=== PATIENT | female | born 1950 | race Caucasian/White ===

== ENCOUNTER 2017-03-28 09:59 | Emergency (ER) | payer MEDICARE, OTHER ==
[~2017-03-28] VITALS: Ht 162.6 cm; Wt 108.2 kg
[~2017-03-28 09:59] MED LIST: ASPI325T32 PO; CALC-761 PO; CLOP75TA3 PO; LEVO125T6 PO; LISI-567 PO; PANT20TA2 PO; ROSU5TAB PO
[2017-03-28] MEDS ORDERED: Ondansetron 2 mg/mL 2 mL Inj ONE (10:31)
--- NOTE | 2017-03-28 10:32 | ED.REPORT ---
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 She describes pain as "sharp" that radiates outwards from the outside of her right ankle, 9 out of 10 in severity, and is exacerbated by movement. Patient did not hit her head. She denies neck pain, back pain, loss of consciousness, lightheadedness, headache, chest pain, focal weakness, numbness/tingling, chills , fever or any other symptoms. Nursing Notes Stated Complaint: GLF Chief Complaint: Extremity Trauma Nursing Notes Reviewed: Yes Allergies: Coded Allergies: Penicillins (Verified Allergy, Unknown, 03/28/17) codeine (Verified Allergy, Unknown, 03/28/17) Scheduled Aspirin (Aspirin) 325 Mg Tablet.dr 325 MG PO DAILY Calcium Citrate/Vitamin D3 (Citracal + D Maximum Caplet) 1 Each Tablet 1 EACH PO BID Clopidogrel Bisulfate (Plavix) 75 Mg Tablet 75 MG PO DAILY Levothyroxine (Levothyroxine) 125 Mcg Tablet 125 MCG PO DAILY Lisinopril (Lisinopril) 20 Mg Tablet 20 MG PO BID Pantoprazole DR (Pantoprazole DR) 20 Mg Tablet.dr 20 MG PO DAILY Rosuvastatin Calcium (Crestor) 5 Mg Tablet 5 MG PO DAILY Scheduled PRN Hydrocodone-Acetaminophen 5-325 mg (Hydrocodone-Acetaminophen 5-325 mg) 1 Each Tablet 1 TABLET PO Q6H PRN PRN For Pain General Time Seen by MD: 10:32 Chief Complaint Other (Right ankle pain) Hx Obtained From: Patient, Spouse Arrived By: Ambulance, Walk-in Sudden in Onset?: Yes Onset Occurred: 1 - 4 hours ago Caused by: Fall on ground Location: : Ankle right Quality: Painful, Sharp Radiation: : Leg right Severity: Current: Pain level 9 out of 10 Severity: Maximum: Pain level 10 out of 10 Pertinent Negative: Pt denies other symptoms Relieved by: Prescription meds Recent Healthcare: No recent doctor visit, No recent hospitalization Similar Sx Previous: No Past Medical History Past Medical History Reports: Hypertension Past Surgical History Myxoma removal in 1998 Pacemaker insertion Reports: Cholecystectomy Smoking History Never Smoker Social History Alcohol Use: "Social" Drug Use: Denies drug use Other Social History: Good social support Ambulatory Status Independent Review of Systems Full Review of Systems Constitutional: Denies: Chills, Fever Eyes: Denies: Blurred bilateral Ears / Nose / Throat: Denies: Sore throat Respiratory: Denies: Shortness of breath Cardiovascular: Denies: Chest pain GI: Denies: Abdominal pain Female: Denies: Dysuria Musculoskeletal: Reports: Extremity pain (Right ankle), Joint pain, Denies: Back pain, Neck pain Skin: Denies Rash Allergy / Immune: Denies: Itching Neurologic: Denies: Change LOC, Focal weakness, Headache, Lightheaded, Numbness Psychiatric: Denies: Change mental status Complete sys rev & neg: except as marked. Physical Exam Nursing note and vitals reviewed. Constitutional: Well-developed, well-nourished. Not diaphoretic. Head: Normocephalic and atraumatic. Mouth/Throat: Oropharynx is clear and moist. No oropharyngeal exudate. Eyes: EOM are normal. Pupils are equal, round, and reactive to light. Neck: Supple, no tracheal deviation. Cardiovascular: Normal rate, regular rhythm. Equal and intact distal pulses throughout. Good cap refill to lower extremities. Pulmonary/Chest: Effort normal and breath sounds normal. No respiratory distress. Abdominal: Soft. No distension. There is no tenderness, rebound, or guarding. Bowel sounds present. Musculoskeletal: Obvious deformity of right ankle with foot dislocated posteriorly with respect to the distal tib-fib. Neurovascularly intact. No knee tenderness to palpation. No proximal fibular tenderness to palpation. No cervical, thoracic, or lumbar tenderness to palpation Neurological: AOx3. Grossly nonfocal exam. Strength and sensation intact and equal to bilateral upper and lower extremities. Skin: Warm and dry, no rashes or pallor appreciated. Psychiatric: Appropriate mood and affect. Behavior appears normal. Vital Signs Vital Signs Date Time Temp Pulse Resp B/P Pulse Ox O2 Delivery O2 Flow Rate FiO2 03/28/17 16:58 64 13 133/69 96 Room Air 03/28/17 13:53 60 14 130/55 95 Room Air 03/28/17 13:00 60 12 139/62 98 Nasal Cannula 4 03/28/17 10:49 36.6 60 24 156/77 97 Room Air Interpretation & Diagnostics Lab Results Interpretation Test 03/28/17 10:25 Hold Purple Top Tube Received (Received) Hold Blue Top Tube Received (Received) Hold Hampton Top Tube Received (Received) Hold Ruelas Top Tube Received (Received) X-Ray Interpretation Xray Interpretation: Ankle X-Ray: IMPRESSION: Posterior dislocation of the right tibiotalar joint, along with comminuted oblique fracture of the distal fibula at the level of the widened syndesmosis. Dictated by: Thad Herring M.D. on 03/28/2017 at 11:16 Approved by: Thad Herring M.D. on 03/28/2017 at 11:17 X-Ray Ordered: Ankle right Interpretation / Wet Read by: Interpret - Radiologist Xray Interpretation: Knee X-Ray: IMPRESSION: No acute bony injuries of the right knee. Dictated by: Thad Herring M.D. on 03/28/2017 at 11:15 Approved by: Thad Herring M.D. on 03/28/2017 at 11:15 X-Ray Ordered: Knee right Interpretation / Wet Read by: Interpret - Radiologist Xray Interpretation: Ankle X-Ray: IMPRESSION: Improved alignment of the lateral malleolus and medial malleolus fracture fragments, status post closed reduction. Improved alignment of the ankle mortise with findings that continue to be compatible with a distal tibiofibular syndesmotic injury. Dictated by: Jose Elias Mcgowan M.D. on 03/28/2017 at 12:43 Approved by: Jose Elias Mcgowna M.D. on 03/28/2017 at 12:45 X-Ray Ordered: Ankle right Interpretation / Wet Read by: Interpret - Radiologist CT Head Interpretation IMPRESSION: Negative head CT. No acute intracranial hemorrhage. Dictated by: Jose Elias Mcgowan M.D. on 03/28/2017 at 13:42 Approved by: Jose Elias Mcgowan M.D. on 03/28/2017 at 13:44 Study: Head CT no contrast Interpretation / Wet Read by: Interpret - Radiologist Procedures Proced Mod Sedation/Analgesia Time: 13:21 Procedure Performed by: ED physician Sedation Time: 16 - 30 min Consent / Setup: Informed consent provided, Consent from patient, Time-out performed, Hand hygiene observed, Position supine Indication: Fracture reduction Preparation: manager monitoring applied, Pulse oximeter applied, Constant attendance, IV access established, Eval last meal time, Supplemental oxygen, Procedure explained, Suction available, End tidal CO2 mon applied Mallampati: Class & Anatomy: 2 top tonsil/uvula/palate Airway Exam: Normal anatomy CVS/Resp Exam: Normal breath sounds, Normal heart sounds Neuro Exam: Alert, No acute distress Sedation: Sedation: Ketamine, Sedation: Propofol ASA Classification: 2 mild systemic disease Response During Procedure: Handled secretions adeq, Maintained airway well, Oxygenation stable, Sedation appropriate, Vital signs stable Complications During/After: None Reversal: None required Mental Status After Procedure: Alert, Oriented X3 Post-Procedure: Vital signs normal Attestation: I performed procedure, I performed sedation Reduction Dislocated Ankle Time: 13:24 Procedure Performed by: ED physician Consent / Setup: Informed consent provided, Consent from patient, Time-out performed, Oxygen administered, Pulse oximeter applied, manager monitoring applied , Hand hygiene observed, Stand sterile technique Procedural Sedation/Analgesia: Sedation: Ketamine, Sedation: Propofol Which Ankle and Technique: Right ankle Neurovascular: Intact pre-procedure, Intact post-procedure Post-Procedure / Complications: Reduced per examination, Procedure successful, X-ray disloc reduced, Posterior splint applied, Condition improved, Tolerated procedure well, Patient stable Splint Application - Fx Mgt Time: 13:28 Procedure Performed by: ED physician Precise Anatomic Location: R ankle Type of Immobilization: Ortho-glass Definitive Fracture Care: Pain control, Splint, Performed by me Post-Procedure / Complications: Cap refill normal, Post splint vascular nl, Post splint neuro nl, Condition improved, Tolerated procedure well, Patient stable Splint Post-Application Eval Extremity Condition: Cap refill < 2 sec, Distal sensation intact, Distal motor Intact, No compartment syndrome Re-Eval/Medical Decision Med Decision/Clinical Course In summary, 66-year-old female presenting to the ED after a clear mechanical fall. No chest pain, shortness of breath, lightheadedness, palpitations or other symptoms prior to the incident; patient merely slipped and fell. Head CT negative for acute intracranial abnormality. No neck pain. She did not hit her head. Compartment soft; no evidence of compartment syndrome. X-rays of the patient's knee and ankle were obtained, demonstrate a comminuted, oblique fracture of the distal fibula, a widened tibiofibular syndesmosis, and a posterior dislocation of the talar dome with respect to the ankle mortise. Reduction, sedation, and splinting performed as per above. This was tolerated well by the patient. I discussed the case with Dr. Rodriguez; he recommended nonweightbearing, follow-up with clinic in the next several days to discuss possible operative intervention. Patient was neurovascularly intact both pre- and post procedure. Plan discharge home with very careful return precautions, PCP follow-up tomorrow for reassessment, and very careful splint care instructions. Patient agreeable to the plan as stated, no further questions. Source of Hx: Old records Time of Eval: 13:21 Re-Evaluation/Progress Note: Pt rechecked. Performed ankle reduction. Time of Eval: 13:59 Patient Status: Condition improved Re-Evaluation/Progress Note: Pt rechecked. Discussed plan for discharge. Patient understands and agrees with plan. F/U instructions and RTER warnings given. All questions addressed at this time. 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 Rodriguez. He recommends discharge and f/u in clinic next week. Pt should keep weight off ankle until f/u. Counseled Regarding: Diagnosis, Lab results, Need for follow-up, When/why to return to ED Discharge & Departure Primary Impression: Ankle fracture Encounter type: initial encounter Fracture type: closed Laterality: right Qualified Code: S82.891A - Other fracture of right lower leg, initial encounter for closed fracture Disposition: Home Discharge Condition All VS Reviewed: Yes Condition: Stable Patient Instructions: Ankle Fracture (ED), Hydrocodone/Acetaminophen (By mouth) , Non Weight Bearing Activity (ED), Splint Care (ED) Additional Instructions: Thank you for entrusting us with your care. Your x-rays determine that you have an ankle fracture that was dislocated. We reduced this in the emergency department. Call ortho tomorrow to schedule a follow-up appointment for early next week. See the number provided. Read the attached instructions carefully. Do not bear weight on your ankle. Take hydrocodone for pain. Do not drive, drink alcohol, or take acetaminophen while taking hydrocodone. Return to the emergency department for numbness/tingling, increasing pain, or any other new or concerning symptoms. Referrals: Denzel Rodriguez MD Attestation Portions of this note were transcribed by Trista Hutton and Harvinder Chu. I, Dr. Perez, personally performed the history, physical exam and medical decision-making; I reviewed and confirmed the accuracy of the information in the transcribed note. Signed by: Zayda Cardoso, 03/28/17. . copies to: Denzel Rodriguez MD, William B MD Mar 28, 2017 10:32 Trista Hutton Mar 28, 2017 11:30 HARVINDER CHU Mar 28, 2017 12:46
[2017-03-28] MEDS ORDERED: HYDROmorphone 1 mg/mL Inj IVPUSH ONE ×2 (10:35→12:15)
[2017-03-28] MEDS ORDERED: Albuterol 0.5% (5mg/mL) 20 mL Inhalation Solution NEB ONE (10:35)
[2017-03-28] MEDS ORDERED: Ipratropium 0.02% 0.5 mg/2.5 mL Inhalation Solution NEB ONE (10:35)
[2017-03-28 10:49] VITALS: BP 156/77; PULSE 60; RESP 24; O2SAT 97
--- NOTE | 2017-03-28 11:17 | DRSVH ---
PROCEDURE: X-RAY RIGHT KNEE, ONE OR TWO VIEWS ([id number]) INDICATIONS: 66 year-old female with right knee pain after fall. TECHNIQUE: 2 views of the knee were acquired. COMPARISON: None. FINDINGS: Bones: No fractures or dislocations. No suspicious bony lesions. Soft tissues: No joint effusion. No suspicious soft tissue calcifications. IMPRESSION: No acute bony injuries of the right knee. Dictated by: Thad Herring M.D. on 03/28/2017 at 11:15 Approved by: Thad Herring M.D. on 03/28/2017 at 11:15
--- NOTE | 2017-03-28 11:19 | DRSVH ---
PROCEDURE: X-RAY RIGHT ANKLE, MINIMUM THREE VIEWS ([id number]) INDICATIONS: 66 year-old female with right ankle injury after fall. TECHNIQUE: 3 views of the ankle were acquired. COMPARISON: None. FINDINGS: Bones: There is comminuted oblique fracture involving the distal fibula at the level of the widened t ibiofibular syndesmosis. There is posterior dislocation of the talar dome with respect to the ankle m ortise. Distal tibia appears intact. Soft tissues: There is bimalleolar soft tissue swelling. IMPRESSION: Posterior dislocation of the right tibiotalar joint, along with comminuted oblique fractu re of the distal fibula at the level of the widened syndesmosis. Dictated by: Thad Herring M.D. on 03/28/2017 at 11:16 Approved by: Thad Herring M.D. on 03/28/2017 at 11:17
[2017-03-28] MEDS ORDERED: Propofol 10 mg/mL 20 mL Inj IVPUSH ONE (12:45)
[2017-03-28] MEDS ORDERED: Ketamine 100 mg/mL 5 mL Inj IV ONE (12:45)
[2017-03-28 13:00] VITALS: BP 139/62; PULSE 60; RESP 12; O2SAT 98
--- NOTE | 2017-03-28 13:47 | DRSVH ---
PROCEDURE: X-RAY RIGHT ANKLE, TWO VIEWS ([id number]) INDICATIONS: ANKLE REDUCTION TECHNIQUE: 2 views of the ankle were acquired. COMPARISON: [facility], CR, XR ANKLE 3VW RT, 03/28/2017, 10:41. FINDINGS: There has been interval improvement in the alignment of the distal fibula and medial malleolus fractu re fragments, status post closed reduction and splinting. These fractures are now in near-anatomic a lignment. The alignment of the ankle mortise is improved with residual widening of the medial clear space and residual widening of the distal tibiofibular syndesmosis. No new fractures are evident. N o suspicious osseous lesions are identified. Prominent soft tissue swelling about the ankle is prese nt with an associated ankle effusion. No radiopaque foreign bodies are evident. IMPRESSION: Improved alignment of the lateral malleolus and medial malleolus fracture fragments, stat us post closed reduction. Improved alignment of the ankle mortise with findings that continue to be compatible with a distal tibiofibular syndesmotic injury. Dictated by: Jose Elias Mcgowan M.D. on 03/28/2017 at 12:43 Approved by: Jose Elias Mcgowan M.D. on 03/28/2017 at 12:45
[2017-03-28 13:53] VITALS: BP 130/55; PULSE 60; RESP 14; O2SAT 95
--- NOTE | 2017-03-28 14:45 | DRSVH ---
PROCEDURE: CT BRAIN WITHOUT CONTRAST ([id number]) INDICATIONS: fall, on plavix TECHNIQUE: Noncontrast 4.5 mm thick angled axial sections acquired from the foramen magnum to the vertex, with c oronal reformats. COMPARISON: None. FINDINGS: Image quality: Diagnostic. Brain: There is no acute intra-axial or extra-axial hemorrhage. No extra-axial fluid collection is i dentified. There is no midline shift or mass effect. The orbits are grossly unremarkable. No large areas of diffusely decreased attenuation are evident within the brain to suggest diffuse cer ebral edema. No focal parenchymal abnormality is identified. The ventricles and cortical sulci are age-appropriate. Bones: Calvarium and visualized facial bones are grossly intact. Hyperostosis frontalis is noted. Mucous retention cyst versus mucosal polyp involving the inferior left maxillary sinus is present. O therwise, the imaged paranasal sinuses and mastoid air cells are clear. IMPRESSION: Negative head CT. No acute intracranial hemorrhage. Dictated by: Jose Elias Mcgowan M.D. on 03/28/2017 at 13:42 Approved by: Jose Elias Mcgowan M.D. on 03/28/2017 at 13:44
[2017-03-28] MEDS ORDERED: HYDR-4003 PO (15:40)
--- NOTE | 2017-03-28 16:37 | NUR ---
Evaluation completed. Please go to "Notes" then click on "Assessments and Notes" (bottom left corner of screen). Then select appropriate discipline tab on top of screen.
[2017-03-28 16:58] VITALS: BP 133/69; PULSE 64; RESP 13; O2SAT 96
== END 2017-03-28 16:30 | disposition home or self-care (01) ==
LOC: EDBD 09:59 → EDUNIT# 09:59 → SED 10:00
DX: S82.841A Displaced bimalleolar fracture of right lower leg, initial encounter for closed fracture (principal); W01.0XXA Fall on same level from slipping, tripping and stumbling without subsequent striking against object, initial encounter; Y93.H2 Activity, gardening and landscaping; Y92.89 Other specified places as the place of occurrence of the external cause; Y99.8 Other external cause status; I10 Essential (primary) hypertension; Z95.0 Presence of cardiac pacemaker; Z79.01 Long term (current) use of anticoagulants; Z79.82 Long term (current) use of aspirin; Z88.0 Allergy status to penicillin; Z88.5 Allergy status to narcotic agent
CPT/HCPCS: 27810; 70450; 73560; 73600; 73610; 94799; 96374; 96375; 96376; 97161; 99152; 99153; 99285; G8978; G8979; G8980; J1170; J2405; J2704

== ENCOUNTER → 2017-04-12 | Day surgery (SDC) | payer MEDICARE, OTHER ==
--- NOTE | 2017-04-09 17:15 | PCM.ANEPRE ---
Anesthesia Pre-Op Review Reason for Review: Cardiac concerns EJ=40-45% Anesthesia Recommendations: Proceed with Procedure Additional Comments 66 y/o female scheduled for ORIF Right Ankle. 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 Pacemaker magnet OK. Saw animal pathologist on 04/02/17 who cleared her for surgery. Echo 10/12/15 shoed EF 40-45%. Appears optimized. Continue with surgery as planned pending evaluation by DOS anesthesiologist. Elkin Davila MD Apr 09, 2017 17:15
[~2017-04-12] VITALS: Ht 162.6 cm; Wt 104.9 kg
[2017-04-12] VITALS (9 sets, daily range): BP systolic 127–145; BP diastolic 48–72; PULSE 60–106; RESP 14–17; O2SAT 92–100
[~2017-04-12] MED LIST changes: +AMLO5TAB2 PO; -ASPI325T32 PO; +Atropine 0.4 mg/mL Inj IVPUSH PRN; +Bupivacaine-MPF 0.5% 30 mL Inj INFILTRATE ONE; -CALC-761 PO; +Clindamycin 600 mg/50 mL D5W Premix IV ONE; +Dexamethasone 4 mg/mL Inj ONE; +EPHEDrine Sulfate 50 mg/mL Inj IVPUSH PRN; +GABA-500 PO; +HYDR-4003 PO; +HYDROmorphone 1 mg/mL Inj IVPUSH PRN; -LISI-567 PO; +LOSA50TA37 PO; +Labetalol 5 mg/mL 20 mL Inj IV PRN; +Lactated Ringer's 1,000 ML IV SCH; +Lactated Ringer's 500 ML IV PRN; +Lidocaine 2%-Epi 1:100,000 20 mL Inj INFILTRATE ONE; +MetoCLOpramide 5 mg/mL 2 mL Inj IVPUSH PRN; +Ondansetron 2 mg/mL 2 mL Inj IVPUSH PRN; +Ondansetron 2 mg/mL 2 mL Inj ONE; -PANT20TA2 PO; +PANT40TA3 PO; +Phenylephrine 10,000 mCg/mL Inj IVPUSH PRN; +Phenylephrine/NS 100 mCg/mL 10 mL Syringe IVPUSH ONE; +fentaNYL-PF 50 mCg/mL 2 mL Inj IVPUSH PRN; +fentaNYL-PF 50 mCg/mL 2 mL Inj ONE; +oxyCODONE-Acetamin 5-325 mg Tablet PO PRN
[2017-04-12] MEDS: Lactated Ringer's 1,000 ML IV SCH ×3 (09:52→11:45)
[2017-04-12] MEDS: Clindamycin Inj 600 MG in IV Premix 1 EACH IV ONE ×2 (11:38→12:04)
--- NOTE | 2017-04-12 12:36 | PCM.HPANE ---
Patient Data Surgeon Admitting Provider: Attending Provider:Presley Stovall DPM Primary Care Physician:Rossi Other Provider:Sara Sykes Anesthesia Reason for Visit Right Ankle Fracture Ht/WT & BMI Height (Feet): 5 Height (Inches): 4.00 Weight (Kilograms): 104.900 Body Mass Index 39.00 Allergies Coded Allergies: codeine (Verified Allergy, Severe, Night frost, 04/08/17) pseudoephedrine (Verified Allergy, Severe, increase somulance, 04/08/17) Penicillins (Verified Allergy, Unknown, severe confuseion, 04/08/17) Past Anesthesia History Anesthesia History: Denies:: Abnormal Airway, Anesthesia Reactions, Difficult Intubation, Fam Anesthesia Reaction, Fam Malignant Hypertherm, Malignant Hyperthermia Diabetes History Hx Diabetes?: No MRSA MRSA: No Medications Blood Thinner: Plavix Last Dose Blood Thinner: Apr 05, 2017 Hypertension Medication: Yes (Crestor) Home Meds Incl Beta Marj: Yes Active Scripts Hydrocodone-Acetaminophen 5-325 mg 1 Each Tablet1 Tablet PO Q6H PRN For Pain # 30 TABLET Prov:Haile Perez MD 03/28/17 Reported Medications Gabapentin 100 Mg [id number] Mg PO TID 30 Days Ref 0 04/08/17 Losartan Potassium 50 Mg [id number] Mg PO DAILY 04/08/17 Amlodipine 5 Mg Tablet5 Mg PO DAILY Ref 0 04/08/[address] 40 Mg Tablet.dr40 Mg PO DAILY Ref 0 04/08/17 Rosuvastatin Calcium (Crestor)5 Mg Tablet5 Mg PO DAILY 30 Days Ref 0 08/05/14 Levothyroxine 125 Mcg [id number] Mcg PO DAILY For Thyroid Replacement #30 TABLET Ref 0 08/05/14 Clopidogrel Bisulfate (Plavix)75 Mg [id number] Mg PO DAILY 30 Days Ref 0 08/05/14 Discontinued Reported Medications Calcium Citrate/Vitamin D3 (Citracal + D Maximum Caplet)1 Each Tablet1 Each PO BID 08/05/14 Lisinopril 20 Mg [id number] Mg PO BID 30 Days Ref 0 08/05/14 Aspirin 325 Mg Tablet.dr325 Mg PO DAILY #1 BOTTLE Ref 0 08/05/[address] 20 Mg Tablet.dr20 Mg PO DAILY 30 Days Ref 0 08/05/14 Last Time Dose Received Off plavix 7 dd Did not take meds today History History of ENT Problems?: No HEENT History: Denies:: Abnormal Airway Cataracts Difficult Intubation Dysphagia Glaucoma Hearing Problem Sinus Problem TMJ Denture Type: Full- Upper Teeth Condition: Within Normal Limits Hx of Heart Problems?: Yes Cardiovascular History: Positive for:: Cardiac Surgery (pacemaker, hx of myxoma 1998) Hypertension Pacemaker Denies:: Abdominal Aortic Aneurism Atrial Fibrillation Chest Pain Congestive Heart Failure Coronary Artery Disease Edema Heart Murmur Irregular Heartbeat Peripheral Vascular Rheumatic Fever Valvular Heart Disease Other History/Comments No hx RI; Greater than 4 mets prior to ankle fracture. TTE with EF of 40-45% pert notes Cleared for surgery by cardiology Pacer orders in chart and recommend magnet over pacer during operation Hx of Respiratory Problem?: No Respiratory History: Positive for:: Chest Surgery (See above) Denies:: Asthma COPD Cough Dyspnea Emphysema Hemoptysis Pneumonia Pulmonary Embolism Tuberculosis Use of C-PAP Machine Use of Inhalers / NEBS Hx Neurologic Problems?: Yes Neurological History: Positive for:: TIA (2000; no residual problems) Denies:: Alzheimer's Disease CVA Dementia Dizziness Headaches Multiple Sclerosis Parkinson's Disease Seizures Hx of GI Problems?: No Hx of Problems?: No Female Hx: Denies:: Problems with Breasts? 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 Denies:: Blood Transfusions Hx Diabetes: No Hx Alcohol Use: YesAlcoholic Drinks Per Day: 1-2 glasses of wine a weekHx Substance Use: No Smoking Status: Never Smoker Have You Smoked inLast 12 mo: No Stop/Bang S-Snoring: Do You Snore Loudly: No T-Tired: feel tired, fatigued: No O-Obsered: Observed not breath: No P-Blood Pressure: treated: Yes B- Body Mass Index > 35 kg/m2: No A- Age over 50: Yes N- Neck Large Circumference: No G- Gender Male: No LETITIA Total Score: 2 Risk Assessment Category Category 1A: Patient has history of documented sleep apnea, and HAS NOT received any narcotic, sedative or anesthesia administration during this stay. Category 1B: Patient has history of documented sleep apnea, and HAS received any narcotic , sedative or anesthesia administration during this stay Category 2: Patient has SUSPECTED Obstructive Sleep Apnea, and HAS received any narcotic , sedative or anesthesia administration during this stay. Category 3: Patient has SUSPECTED Obstructive Sleep Apnea and HAS NOT received narcotic, sedative or anesthesia administration during this stay. Category 4: Outpatient in Procedural Areas with known sleep apnea or who screen positive for High Risk via the STOP/BANG questionnaire. Exam Exam Vital Signs Vital Signs Date Time Temp Pulse Resp B/P Pulse Ox O2 Delivery O2 Flow Rate FiO2 04/12/17 10:02 36.3 61 16 143/67 97 Room Air General Appearance: Alert, Oriented X3 HEENT/AIRWAY: MP 2, Neck Movement (FROM) Lungs: Clear to Auscultation, Clear to Percussion Heart: Exam Unremarkable, Regular Rate/Rhythm Meds/Labs/Diagnostics Admission Meds Current Medications Lactated Ringer's (Lr) 1,000 ml @ 120 mls/hr Q8H20M IV Last administered on t 09:52; Start 04/12/17 at 05:00; Stop 04/12/17 at 13:19 Plan Impression Patient chart reviewed, patient interviewed and anesthestic plan with risks, benefits, and alternatives discussed, and informed consent obtained. ASA Physical Status: ASA3 Severe Disease (pacer dependant) Anesthetic Plan: GA, Regional Block (popliteal block for post-op pain per surgeon request) Bene/Risks/Altern/Consents: Yes HP Complete Prior to Induction: Yes Jeramie Mir MD Apr 12, 2017 11:27
--- NOTE | 2017-04-12 14:26 | PCM.PODPO ---
Podiatry Operative Report Date of Service: Apr 12, 2017 Date of Service Apr 12, 2017 Pre Operative Diagnosis Ankle fracture right lower 70 Post Operative Diagnosis Same as preoperative diagnosis Procedure Open reduction internal fixation right ankle Surgeon Surgeon: Presley Stovall DPM Assistants: None Indication for Procedure Displaced ankle fracture right lower extremity Findings Comminuted fracture of the distal right fibula and fracture of the posterior malleolus without displacement Details of Procedure Patient was identified in the preoperative holding area. All preoperative comorbidities and allergies were identified and thoroughly discussed. The patient was transported into the operating room and placed on the operating room table in the normal supine position. General anesthesia was induced by the anesthesia service following a popliteal block performed by the anesthesia service. The patient was then prepped and draped in the normal aseptic technique. A preoperative timeout was performed. Attention was first paid to the lateral aspect of the right lower extremity. An approximately 12 cm incision was made directly overlying the posterior lateral aspect of the right fibula. Once that initially her skin all subcutaneous neurovascular structures were identified and retracted out of the surgical field. Sharp dissection was carried down to the fibula directly and soft tissue was reflected both anteriorly and posteriorly exposing the distal fibular mid shaft and lateral malleolus. The fibular shaft fracture was identified and found to be comminuted with a moderate posterior and posterior medial fragment. A curet was used to lightly debride the fracture site of all hematogenous tissue. Reduction was performed and maintained with a bone clamp. A lag screw was placed from the most proximal aspect of the fibular fracture site in order to help reduce and maintain reduction of the posterior malleolus fracture. An Arthrex lateral fibular reconstruction plate was placed with locking screws in the normal surgical technique utilizing intraoperative C-arm x-ray to verify reduction. This wound was then closely flushed with large amounts of normal saline. The ankle was then placed through range of motion including stress inversion and attempted posterior translation and found to be stable. Deep closure was performed utilizing number 2. 0 Vicryl subcutaneous closure was performed utilizing number 3. 0 Vicryl and skin closure was performed utilizing number 3. 0 Prolene. The wound was then dressed with Adaptic sterile 4 x 4 gauze Kerlix and the patient was placed into a Rudolph compression dressing with posterior splint. No competitions occur during this procedure. The patient was awoken by anesthesia and transported out of the operating room into the postanesthesia care unit. Grafts, Implants: Implants-See Implant Record Complications There were no periprocedural complications identified. Condition Stable Anesthetic Administered: GA Catheters: None Output, Estimated Blood Loss: 50 Blood Admin during surgery: No Surgical Cast or Splint: Well-padded Short Leg Splint Surgical Specimen Removed: No Specimen sent to Pathology: No Post Operative Plan Ice and elevate right lower extremity Nonweightbearing right lower extremity Discharge to home when stable and cleared by anesthesia Follow-up in 1 week Nonweightbearing right lower extremity Presley Stovall DPM Apr 12, 2017 14:25
--- NOTE | 2017-04-12 14:31 | PCM.ANEP1 ---
Post Anesthesia PACU Phase 1 Assessment Vital Signs Vital Signs Date Time Temp Pulse Resp B/P Pulse Ox O2 Delivery O2 Flow Rate FiO2 04/12/17 14:20 106 16 135/48 97 Nasal Cannula 2 04/12/17 14:15 96 17 145/53 100 Simple Mask 8 04/12/17 14:10 36.1 100 14 138/60 100 Simple Mask 8 04/12/17 10:02 36.3 61 16 143/67 97 Room Air Anesthetic Administered: GA Level of Alertness: Awake, talking GASTON's with Equal Strength: Yes Pain: No Nausea or Vomiting: No CV Function & Hydration Stable: No Airway Device: Oxygen Delivery: Room Air Lungs: Clear to Auscultation, Clear to Percussion PACU Phase 2 Assessment Complications: No Follow up Care: No Patient Instructions Provided: N/A Comments When magnet was removed the HR was estimated at 58 by pulse ox. I discussed the case with surgeon and the pacer rep. The pacer rep stated there was no possible way that the magnet could have affected the pacer function and was 100 % certain the device did not need to be interrogated. The surgeon also stated he did not use cautery. The RN auscultated the heart and HR on auscultation was above 60 consistent with the parameters of pacer. BP was stable and there were no abnormal symptoms. Based on all of this information there is no apparent signs of pacer malfunction, nor should there be and interrogation does not appear necessary Jeramie Mir MD Apr 12, 2017 14:31
== END | disposition home or self-care (01) ==
LOC: SAS 09:34
PROVIDERS: ATTEND Podiatrist Foot & Ankle Surgery
DX: S92.819A Other fracture of unspecified foot, initial encounter for closed fracture (principal); I10 Essential (primary) hypertension; I44.2 Atrioventricular block, complete; X58.XXXA Exposure to other specified factors, initial encounter; Y92.9 Unspecified place or not applicable; Y99.9 Unspecified external cause status; Y93.9 Activity, unspecified; Z95.0 Presence of cardiac pacemaker; Z86.73 Personal history of transient ischemic attack (TIA), and cerebral infarction without residual deficits; Z79.899 Other long term (current) drug therapy